=== PATIENT | female | born 1965 | race Caucasian/White ===

== ENCOUNTER → 2021-04-11 | Outpatient (CLI) | payer MEDICARE ==
[~2021-04-11] MED LIST: ATORVASTATIN CA20 MG PO; COZAAR 50MG TAB50 MG PO; DEXILANT60 MG PO; DOCUSATE SODIU100 MG PO; FARXIGA10 MG PO; GABAPENTIN300 MG PO; LINZESS145 MCG PO; LOPRESSOR 25 MG25 MG PO; MEN'S MULTIVI200 MCG PO; METFORMIN HCL500 MG PO; METHOTREXATE2.5 MG PO; NAPROXEN500 MG PO; TRAMADOL HCL50 MG PO; TURMERIC PO; VITAMIN D3 PO; ZYRTEC10 MG PO
[2021-04-12 11:15] LABS: HBSAG SCREEN Negative (Negative)
[2021-04-12 12:15] LABS: RHEUMATOID ARTHRITIS FACTOR <10.0 IU/mL (0.0-13.9)
[2021-04-13 10:14] LABS: HCV AB <0.1 (0.0-0.9); HEP B CORE AB, TOT Negative (Negative)
[2021-04-14 04:08] LABS: QUANTIFERON MITOGEN VALUE >10.00 IU/mL (.); QUANTIFERON NIL VALUE 0.03 IU/mL (.); QUANTIFERON TB1 AG VALUE 0.08 IU/mL (.); QUANTIFERON-TB GOLD PLUS Negative (Negative)
== END ==
LOC: LAB 14:06
PROVIDERS: Nurse Practitioner Family
DX: Z11.59 Encounter for screening for other viral diseases (principal); M79.641 Pain in right hand; M79.642 Pain in left hand; M25.50 Pain in unspecified joint; D89.9 Disorder involving the immune mechanism, unspecified; R76.8 Other specified abnormal immunological findings in serum; M79.10 Myalgia, unspecified site; Z79.899 Other long term (current) drug therapy
CPT/HCPCS: 36415; 73130; 82550; 82728; 83520; 85652; 86140; 86200; 86431; 86704; 86803; 87340; 87522

== ENCOUNTER → 2021-11-15 | Outpatient (CLI) | payer MEDICARE | LOC: MAMO 10-25 11:00 | DX: Z12.31 Encounter for screening mammogram for malignant neoplasm of breast (principal) | CPT/HCPCS: 77063; 77067 ==

== ENCOUNTER → 2021-12-06 | Outpatient (CLI) | payer MEDICARE | LOC: KOH-I 13:38 | DX: M25.511 Pain in right shoulder (principal); S43.031A Inferior subluxation of right humerus, initial encounter | CPT/HCPCS: 73030 ==

== ENCOUNTER → 2022-04-03 | Outpatient (CLI) | payer MEDICARE | LOC: KOH-I 15:15 | DX: M75.121 Complete rotator cuff tear or rupture of right shoulder, not specified as traumatic (principal) | CPT/HCPCS: 73221 ==